=== PATIENT | male | born 1945 | race Caucasian/White ===

== ENCOUNTER 2017-10-10 08:23 | Day surgery (SDC) | payer MEDICARE, OTHER ==
[~2017-10-10 08:23] MED LIST: Lactated Ringers 1,000 ML IV SCH; Lidocaine 2% 5 ML SDV ONE; Propofol 200 MG/20 ML SDV ONE; fentaNYL 100 MCG/2 ML SDV ONE
--- NOTE | 2017-10-10 09:06 | PCM.PREANE ---
Preanesthetic Assessment - Anesthesia/Transfusion/Family Hx Anesthesia History: Prior Anesthesia Without Reaction Other Type of Anesthesia Reaction Comment: Denies any known problem in past with anesthesia Family History of Anesthesia Reaction: No Transfusion History: No Prior Transfusion(s) Intubation History: Unknown - Review of Systems General: No Symptoms Pulmonary: No Symptoms Cardiovascular: No Symptoms Gastrointestinal: Hematochezia, Other (h/o colon polyps 3 years ago) Neurological: No Symptoms Other: Reports: None - Physical Assessment O2 Sat by Pulse Oximetry: 93 Respiratory Rate: 16 Vital Signs: Last Vital Signs Temp 36.2 C 10/10/17 08:40 Pulse 75 10/10/17 08:40 Resp 16 10/10/17 08:40 BP 123/74 10/10/17 08:40 Pulse Ox 93 L 10/10/17 08:40 Height: 1.78 m Weight: 104.78 kg ASA Class: 2 Mental Status: Alert & Oriented x3 Airway Class: Mallampati = 2 Dentition: Reports: Dentures (upper), Partial (lower) Thyro-Mental Finger Breadths: 3 Mouth Opening Finger Breadths: 3 ROM/Head Extension: Full Lungs: Clear to Auscultation, Normal Respiratory Effort Cardiovascular: Regular Rate, Regular Rhythm - Allergies Allergies/Adverse Reactions: Allergies Allergy/AdvReac Type Severity Reaction Status Date / Time adhesive tape Allergy Blisters Verified 10/05/17 13:31 Penicillins Allergy Rash Verified 10/05/17 13:31 - Blood Blood Available: No - Anesthesia Plan Pre-Op Medication Ordered: None - Acknowledgements Anesthesia Type Planned: MAC Pt an Appropriate Candidate for the Planned Anesthesia: Yes Alternatives and Risks of Anesthesia Discussed w Pt/Guardian: Yes Pt/Guardian Understands and Agrees with Anesthesia Plan: Yes PreAnesthesia Questionnaire HEENT History: Reports: Other (See Below) Other HEENT History: wears glasses, has top denture and lower partial Cardiovascular History: Reports: High Cholesterol, Hypertension Gastrointestinal History: Reports: Colon Polyp, Other (See Below) Other Gastrointestinal History: occasional heartburn Genitourinary History: Reports: Renal Calculus Musculoskeletal History: Reports: Fracture Endocrine/Metabolic History: Reports: Obesity/BMI 30+ - Past Surgical History Head Surgeries/Procedures: HEENT Surgical History: Reports: Other (See Below) Other HEENT Surgeries/Procedures: hx surgical tx for fx jaw GI Surgical History: Reports: Cholecystectomy, Colonoscopy (3 years ago with polypectomy) Male Surgical History: Reports: Vasectomy Musculoskeletal Surgical History: Reports: ORIF Other Musculoskeletal Surgeries/Procedures:: ORIF fx rt ankle - SUBSTANCE USE Smoking Status *Q: Former Smoker Recreational Drug Use History: No - HOME MEDS Home Medications: Home Meds Aspirin [Halfprin] 81 mg PO DAILY 07/28/14 [History] Fish Oil/[place]-3 Fatty Acids [Fish Oil 1,000 MG] 1 cap PO DAILY 07/28/14 [ History] Losartan Potassium 100 mg PO BRK 07/28/14 [History] Cartilage/Collagen/Bor/Hyalur [Joint Health Tablet] 1 tab PO DAILY 10/05/17 [ History] L Gasseri/B Bifidum/B Longum [Hoffman' Colon Health Capsule] 1 tab PO DAILY 05/24 [History] Vit A/C/E AC/Znox/Cupric Oxide [Eye Vitamin-Minerals Tablet] 1 tab PO DAILY 05/24 [History] - CURRENT (IN HOUSE) MEDS Current Meds: Current Medications Lactated Ringer's (Ringers, Lactated) 1,000 mls @ 125 mls/hr IV ASDIRECTED ARYAN Last Admin: 10/10/17 08:57 Dose: 125 mls/hr Discontinued Medications Fentanyl (Sublimaze) Confirm Administered Dose 100 mcg .ROUTE .STK-MED ONE Stop: 10/10/17 07:16 Lidocaine (Xylocaine-Mpf 2%) Confirm Administered Dose 5 ml .ROUTE .STK-MED ONE Stop: 10/10/17 07:16 Propofol (Diprivan 20 Ml) Confirm Administered Dose 400 mg .ROUTE .STK-MED ONE Stop: 10/10/17 07:16
--- NOTE | 2017-10-10 09:59 | PCM.OPNOTE ---
- General Post-Op/Procedure Note Date of Surgery/Procedure: 10/10/17 Operative Procedure(s): Colonoscopy with cold ascending colon, transverse colon and sigmoid colon 2 polypectomies Pre Op Diagnosis: Personal history of colon polyps. Change in bowel habits. Fecal urgency. Post-Op Diagnosis: Ascending colon, transverse colon, and sigmoid colon 2 polyps. Anesthesia Technique: MAC (ASA II) Primary Surgeon: Pop Aldrich Condition: Good Free Text/Narrative:: DICTATION [id number] CPT CODE 68133
[2017-10-10] MEDS ORDERED: Lactated Ringers 1,000 ML IV SCH (10:00)
[2017-10-10 10:32] VITALS: BP 139/90
--- NOTE | 2017-10-10 10:36 | PCM.POSTAN ---
POST ANESTHESIA ASSESSMENT - MENTAL STATUS Mental Status: Alert, Oriented - RESPIRATORY Respiratory Status: Respiratory Rate WNL, Airway Patent, O2 Saturation Stable - CARDIOVASCULAR CV Status: Pulse Rate WNL, Blood Pressure Stable - GASTROINTESTINAL GI Status: No Symptoms - POST OP HYDRATION Hydration Status: Adequate & Stable - OBSERVATIONS Free Text/Narrative:: 0
--- NOTE | 2017-10-10 10:44 | PCM48HPAN ---
Post Anesthesia Note - EVALUATION WITHIN 48HRS OF ANESTHETIC Vital Signs in Normal Range: Yes Patient Participated in Evaluation: Yes Respiratory Function Stable: Yes Airway Patent: Yes Cardiovascular Function Stable: Yes Hydration Status Stable: Yes Pain Control Satisfactory: Yes Nausea and Vomiting Control Satisfactory: Yes Mental Status Recovered: Yes Resp Rate: 12 - COMMENTS/OBSERVATIONS Free Text/Narrative:: no anesthesia problems
--- NOTE | 2017-10-11 10:13 | OR ---
SURGEON: Pop Aldrich M.D. DATE OF PROCEDURE: 10/10/2017 OPERATIONS PERFORMED: Colonoscopy with cold ascending colon polypectomy, cold transverse colon polypectomy, and cold sigmoid polypectomy x2. ANESTHESIA: MAC. ASA CLASSIFICATION: II. PREOPERATIVE DIAGNOSES: 1. Personal history of colon polyps. 2. Change in bowel habits. 3. Fecal urgency. POSTOPERATIVE DIAGNOSES: Ascending colon, transverse colon, and sigmoid colon x2 polyps. DESCRIPTION OF PROCEDURE: The patient was taken to the endoscopy room and positioned on the endoscopy table in the left lateral decubitus position. Time-out was called for appropriate identification of the patient and procedure. Monitored anesthesia care was provided. The colonoscope was inserted into the rectum and advanced with minimal difficulty to the cecum. Multiple attempts were made to retroflex the colonoscope, but I could not get the scope to retroflex in the cecum. One polyp was encountered in the ascending colon and removed with cold biopsy forceps. No diverticular changes were noted in the ascending colon and there were no inflammatory changes. Transverse colon was carefully visualized and one small polyp was encountered in the transverse colon and likewise removed with the cold biopsy forceps. The splenic flexure and descending colon showed no tumors, polyps, diverticula, or angiodysplastic changes. Two more polyps were encountered in the mid and distal sigmoid colon. These were removed with the cold biopsy forceps and sent for separate histologic analysis. There was no evidence of sigmoid diverticular disease. The colonoscope was withdrawn to the rectum and retroflexed to visualize the anal orifice from above. Again, no tumors or polyps were seen and there were no acute hemorrhoidal changes. The colonoscope was then straightened, the rectum aspirated, and the colonoscope removed. The patient tolerated the procedure well and was taken to recovery room in stable condition. MART MARTINEZ /[id number]
== END 2017-10-10 10:35 | disposition home or self-care (01) ==
LOC: MW.SDS 08:23
PROVIDERS: ATTEND Surgery
DX: R19.4 Change in bowel habit (principal); R15.2 Fecal urgency; Z86.010 Personal history of colon polyps; D12.3 Benign neoplasm of transverse colon; D12.2 Benign neoplasm of ascending colon; D12.5 Benign neoplasm of sigmoid colon; I10 Essential (primary) hypertension; E66.9 Obesity, unspecified; Z68.33 Body mass index [BMI] 33.0-33.9, adult; E78.00 Pure hypercholesterolemia, unspecified; Z87.891 Personal history of nicotine dependence; Z79.82 Long term (current) use of aspirin; Z79.899 Other long term (current) drug therapy; Z88.0 Allergy status to penicillin; Z91.048 Other nonmedicinal substance allergy status
CPT/HCPCS: 45380; J3010; J7120; 88305; J2704

== ENCOUNTER 2020-12-17 08:38 | Day surgery (SDC) | payer MEDICARE, OTHER ==
[~2020-12-17 08:38] MED LIST changes: -Lidocaine 2% 5 ML SDV ONE
--- NOTE | 2020-12-17 09:19 | PCM.PREANE ---
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) - Physical Assessment NPO Status Date: 12/15/10 NPO Status Time: 19:00 Vital Signs: Last Vital Signs Temp 97.7 F 12/17/20 09:12 Pulse 68 12/17/20 09:12 Resp 16 12/17/20 09:12 BP 125/77 12/17/20 09:12 Pulse Ox 94 L 12/17/20 09:12 Height: 5 ft 10 in Weight: 95.254 kg (obesity) ASA Class: 3 Mental Status: Alert & Oriented x3 Airway Class: Mallampati = 2 Dentition: Reports: Dentures (Full upper, partial lower) Thyro-Mental Finger Breadths: 3 Mouth Opening Finger Breadths: 3 ROM/Head Extension: Full Lungs: Clear to Auscultation, Normal Respiratory Effort Cardiovascular: Regular Rate, Regular Rhythm - Allergies Allergies/Adverse Reactions: Allergies Allergy/AdvReac Type Severity Reaction Status Date / Time adhesive tape Allergy Blisters Verified 12/17/20 09:08 Penicillins Allergy Rash Verified 12/17/20 09:08 - Acknowledgements Anesthesia Type Planned: General Anesthesia Pt an Appropriate Candidate for the Planned Anesthesia: Yes Alternatives and Risks of Anesthesia Discussed w Pt/Guardian: Yes Pt/Guardian Understands and Agrees with Anesthesia Plan: Yes PreAnesthesia Questionnaire HEENT History: Reports: Other (See Below) Other HEENT History: wears glasses, has top denture and lower partial Cardiovascular History: Reports: High Cholesterol, Hypertension Respiratory History: Reports: None Gastrointestinal History: Reports: Colon Polyp, Other (See Below) Other Gastrointestinal History: occasional heartburn Genitourinary History: Reports: Renal Calculus Musculoskeletal History: Reports: Fracture Neurological History: Reports: None Psychiatric History: Reports: None Endocrine/Metabolic History: Reports: Obesity/BMI 30+ Hematologic History: Reports: None Immunologic History: Reports: None Oncologic (Cancer) History: Reports: Squamous Cell Carcinoma Dermatologic History: Reports: Eczema - Past Surgical History HEENT Surgical History: Reports: Other (See Below) Other HEENT Surgeries/Procedures: hx surgical tx for fx jaw, 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 Cardiovascular Surgical History: Reports: None Respiratory Surgical History: Reports: None GI Surgical History: Reports: Cholecystectomy, Colonoscopy Male Surgical History: Reports: Vasectomy Endocrine Surgical History: Reports: None Neurological Surgical History: Reports: None Musculoskeletal Surgical History: Reports: ORIF Other Musculoskeletal Surgeries/Procedures:: ORIF fx rt ankle, surgical tx for fx jaw Other Oncologic Surgeries/Procedures: radiation for squamous cell on tongue Dermatological Surgical History: Reports: None - SUBSTANCE USE Tobacco Use Status *Q: Former Tobacco User Tobacco Use Within Last Twelve Months: No - HOME MEDS Home Medications: Home Meds Aspirin [Halfprin] 81 mg PO DAILY 07/28/14 [History] Fish Oil/[place]-3 Fatty Acids [Fish Oil 1,000 MG] 1 cap PO DAILY 07/28/14 [History] Cartilage/Collagen/Bor/Hyalur [Joint Health Tablet] 1 tab PO DAILY 10/05/17 [History] L Gasseri/B Bifidum/B Longum [Hoffman' Colon Health Capsule] 1 tab PO DAILY 10/05/17 [History] Vit A/C/E AC/Znox/Cupric Oxide [Eye Vitamin-Minerals Tablet] 1 tab PO DAILY 10/05/17 [History] Clotrimazole [Itch Relief] 1 tab PO ASDIRECTED PRN 12/13/20 [History] Losartan/Hydrochlorothiazide [Losartan-HCTZ 100-25 MG] 1 tab PO DAILY 12/13/20 [History] - CURRENT (IN HOUSE) MEDS Current Meds: Current Medications Lactated Ringer's (Ringers, Lactated) 1,000 mls @ 125 mls/hr IV ASDIRECTED ARYAN Last Admin: 12/17/20 09:07 Dose: 125 mls/hr Documented by: Discontinued Medications Fentanyl (Fentanyl 100 Mcg/2 Ml Sdv) Confirm Administered Dose 100 mcg .ROUTE .STK-MED ONE Stop: 12/17/20 07:31 Propofol (Propofol 200 Mg/20 Ml Sdv) Confirm Administered Dose 400 mg .ROUTE .STK-MED ONE Stop: 12/17/20 07:31
[2020-12-17] MEDS ORDERED: Propofol 200 MG/20 ML SDV ONE (09:24)
[2020-12-17] MEDS ORDERED: propofoL 50 ML ONE (09:47)
[2020-12-17] MEDS ORDERED: fentaNYL 100 MCG/2 ML SDV ONE (09:49)
[2020-12-17] MEDS ORDERED: Lactated Ringers 1,000 ML IV SCH (10:30)
--- NOTE | 2020-12-17 10:30 | PCM.OPNOTE ---
- General Post-Op/Procedure Note Date of Surgery/Procedure: 12/17/20 Operative Procedure(s): Colonoscopy with cold rectal polypectomy Pre Op Diagnosis: Personal history of colon polyps Post-Op Diagnosis: Rectal polyp Anesthesia Technique: MAC (ASA III) Primary Surgeon: Pop Aldrich Condition: Good Free Text/Narrative:: DICTATION [id number] CPT CODE [id number]
[2020-12-17] MEDS ORDERED: ePHEDrine 50 MG/ML SDV ONE (10:39)
[2020-12-17] MEDS ORDERED: Sodium Chloride 0.9% 20 ML ONE (10:39)
--- NOTE | 2020-12-17 10:51 | PCM.POSTAN ---
POST ANESTHESIA ASSESSMENT - MENTAL STATUS Mental Status: Alert, Oriented - VITAL SIGNS Vital Signs: Last Vital Signs Temp 97.7 F 12/17/20 09:12 Pulse 63 12/17/20 10:43 Resp 11 L 12/17/20 10:43 BP 86/44 L 12/17/20 10:43 Pulse Ox 99 12/17/20 10:43 - RESPIRATORY Respiratory Status: Respiratory Rate WNL, Airway Patent, O2 Saturation Stable - CARDIOVASCULAR CV Status: Pulse Rate WNL, Blood Pressure Stable - GASTROINTESTINAL GI Status: No Symptoms - PAIN Pain Score: 0 - POST OP HYDRATION Hydration Status: Adequate & Stable
--- NOTE | 2020-12-17 11:16 | PCM48HPAN ---
Post Anesthesia Note - EVALUATION WITHIN 48HRS OF ANESTHETIC Vital Signs in Normal Range: Yes Patient Participated in Evaluation: Yes Respiratory Function Stable: Yes Airway Patent: Yes Cardiovascular Function Stable: Yes Hydration Status Stable: Yes Pain Control Satisfactory: Yes Nausea and Vomiting Control Satisfactory: Yes Mental Status Recovered: Yes Vital Signs: Last Vital Signs Temp 97.7 F 12/17/20 09:12 Pulse 66 12/17/20 10:58 Resp 10 L 12/17/20 10:58 BP 102/49 L 12/17/20 10:58 Pulse Ox 92 L 12/17/20 10:58 - COMMENTS/OBSERVATIONS Free Text/Narrative:: Pt doing well post-op. VSS. No apparent anesthetic complications. Dr. Royer English
--- NOTE | 2020-12-17 11:25 | OR ---
SURGEON: Pop Aldrich M.D. DATE OF PROCEDURE: 12/17/2020 OPERATION PERFORMED: Colonoscopy with cold rectal polypectomy. PRIMARY SURGEON: Pop Aldrich M.D. ANESTHESIA: MAC. ASA CLASSIFICATION: III. PREOPERATIVE DIAGNOSIS: Personal history of colon polyps. POSTOPERATIVE DIAGNOSIS: Rectal polyp. DESCRIPTION OF PROCEDURE: The patient was taken to the endoscopy room and positioned on the endoscopy table in the left lateral decubitus position. Time-out was called for appropriate identification of the patient and procedure. Monitored anesthesia care was provided. The colonoscope was inserted into the rectum and advanced with minimal difficulty to the cecum. The cecum was identified by internal landmarks and external pressure. The colonoscope was retroflexed in the cecum to visualize the ascending colon from below and then straightened and slowly withdrawn. The cecum, ascending colon, hepatic flexure, transverse colon, splenic flexure, descending colon, sigmoid colon, and rectum were very well visualized. No tumors, polyps, diverticula, or angiodysplastic changes were encountered anywhere in the upper portion of the large intestine. One polyp was encountered in the mid rectum and this was removed with the cold biopsy forceps. There was no significant bleeding. The colonoscope was then retroflexed to visualize the anal orifice from above. Again, no tumors or polyps were seen and no acute hemorrhoidal changes were noted. The colonoscope was then straightened, the rectum aspirated, and the colonoscope removed. The patient tolerated the procedure well and was taken to recovery room in stable condition. MART / JUAN /[id number]
[2020-12-17 12:06] VITALS: BP 110/60; PULSE 60
== END 2020-12-17 11:30 | disposition home or self-care (01) ==
LOC: MW.SDS 08:38
PROVIDERS: ATTEND Surgery
DX: Z12.11 Encounter for screening for malignant neoplasm of colon (principal); D12.8 Benign neoplasm of rectum; C01 Malignant neoplasm of base of tongue; Z86.010 Personal history of colon polyps; Z88.0 Allergy status to penicillin; Z79.82 Long term (current) use of aspirin; Z79.899 Other long term (current) drug therapy; Z87.891 Personal history of nicotine dependence
CPT/HCPCS: 45380; 88305; J2704; J3010; J7120; 00811; 99100